=== PATIENT | male | born 1980 | race Caucasian/White ===

== ENCOUNTER 2018-11-12 05:00 | Inpatient (IN) | payer MEDICAID ==
[2018-11-12] VITALS (7 sets, daily range): BP systolic 98–120; BP diastolic 63–82
[~2018-11-12] VITALS: Ht 170.2 cm; Wt 95.0 kg
--- NOTE | 2018-11-12 05:14 | NUR ---
PATIENT AAOX4 PRESENTS TO THE ED WITH C/O CHEST PAIN, N & V THAT STARTED EARLIER THIS AFTERNOON. PT STS "PAIN IN CHEST FEELS LIKE A KNIFE AND I FEEL PRESSURE IN MY STOMACH". BREATHING E/U, SKIN WARM, DRY AND INTACT. ABD SOFT, NON DISTENDED, NON TENDER. BS X 4 QUADS. PT PLACED ON ALL MONITORS FOR FURTHER OBSERVATION. PLACED IN GOWN, GURNEY IN LOW POSITION. SIDE RAILS UP. WILL CONTINUE TO MONITOR.
--- NOTE | 2018-11-12 05:15 | NUR ---
PATIENT ADMITS TO USING METHAPHETAMINE PRIOR TO CHEST PAIN STARTING. PT STS HE HAS HAD CHEST PAIN FOR ABOUT A YEAR, WITH WORSENING PAIN THIS EVENING BEING 9/10. WILL CONTINUE TO MONITOR.
--- NOTE | 2018-11-12 05:30 | NUR ---
EKG IN PROGRESS, MD BEDSIDE.
[2018-11-12 05:47] LABS: BASOPHIL % 0.4 % (0-2); PLATELET COUNT 182 x10^3mcL (130-400)
[2018-11-12 05:48] LABS: RED CELL DISTRIBUTION WIDTH 15.6 % (11.5-14.5)
[2018-11-12 05:50] LABS: CALCIUM 8.6 mg/dL (8.5-10.1); CARBON DIOXIDE 27.4 mmol/L (21-32); CREATININE SERUM 1.8 mg/dL (0.7-1.3); POTASSIUM SERUM 4.2 mmol/L (3.5-5.1)
[2018-11-12 05:55] LABS: ALBUMIN 3.9 g/dL (3.4-5.0); BILIRUBIN TOTAL 0.53 mg/dL (0.20-1.00); TOTAL PROTEIN, SERUM 7.1 g/dL (6.4-8.2)
--- NOTE | 2018-11-12 06:06 | NUR ---
PATIENT PLACED ON 02 VIA NC @ 2 L CONTINUOUS. PT SATS @ LOW 90S PRIOR TO 02 ADMINISTRATION. WILL CONTINUE TO MONITOR.
--- NOTE | 2018-11-12 06:41 | NUR ---
REPORT GIVEN TO THO VIEIRA - RICK FOR CONTINUED CARE OF PATIENT.
--- NOTE | 2018-11-12 07:00 | NUR ---
RECEIVED PT FROM ED. PT AOX4. BREATHING EVEN AND UNLABORED ON NC 2L/MIN. NO SOB NOTED. PT IV LAC PATENT. TELE #22 NSR WITH DEPRESSED T WAVE. PT DENIES CHEST PAIN/PRESSURE AT THIS TIME. VS STABLE. NO SIGNS OF DISTRESS NOTED. WILL ENDORSED TO DAY SHIFT RN.
--- NOTE | 2018-11-12 07:05 | NUR ---
RECEIVED REPORT FROM DARIEL NETTLES. PATIENT RESTING COMFORTABLY IN BED, IS DROWSY BUT AROUSABLE, WITH ALL NEEDS MET. SALINE LOCK TO LAC IS PATENT AND INTACT. NO REDNESS OR PAIN. PT ON O2 2L NC. NO DISTRESS NOTED. TELE # [address] PT DENIES CHEST PAIN. ALL QUESTIONS AND CONCERNS ADDRESSED.
--- NOTE | 2018-11-12 07:36 | NUR ---
PT IN NO SIGNS OF DISTRESS. ENDORSED CARE TO DAY SHIFT RN, ALL QUESTIONS ADDRESSED.
--- NOTE | 2018-11-12 11:28 | NUR ---
IN TO BEGIN FLUIDS. INSTRUCTED PATIENT THAT A URINE SAMPLE IS NEEDED. URINAL PROVIDED. INSTRUCTED TO CALL WHEN URINE IS AVAILABLE. PT VERBALIZED UNDERSTANDING.
--- NOTE | 2018-11-12 13:26 | NUR ---
IN TO SEE PATIENT AND ASSESS NEEDS AFTER LUNCH. PATIENT RESTING COMFORTABLY IN BED WITH FAMILY AT BEDSIDE. ALL NEEDS MET.
--- NOTE | 2018-11-12 14:08 | NUR ---
RECEIVED CALL FROM LAB FOR TROPONIN [phone] DR DIEGO RIVAS.
[2018-11-12 15:24] LABS: AMPHETAMINE QUAL UR POSITIVE (See below)
--- NOTE | 2018-11-12 19:23 | NUR ---
REPORT GIVEN TO FELIX NETTLES. PATIENT SLEEPING COMFORTABLY IN BED. ALL NEEDS MET. TELE MONITOR IN PLACE. PT DENIES CHEST PAIN. PT ON O2 2L NC. NO C/O SOB AND NO DISTRESS NOTED. ALL QUESTIONS AND CONCERNS ADDRESSED.
--- NOTE | 2018-11-12 19:28 | NUR ---
SHIFT REASSESSMENT DONE.PATIENT ALERT AND ORIENTED.NOT IN RESP DISTRESS.O2 AT 2 LITERS.DX OF NON STEMI.HEPLOCK LAC.SITE GOOD AND PATENT.NOW ON LASIX,ELEVATED BNP.WAS ON LOVENOX,NON STEMI.TROP ELEVATED.TELE 22 SR.DEPRESSED T WAVE.SKIN INTACT.VOIDING,UDS + METH.NO PAIN AT THIS TIME.CALL LIGHT IN REACH.
--- NOTE | 2018-11-12 20:44 | NUR ---
VISITOR AT BEDSIDE,SUPPORTIVE OF CARE.NO MED AT THIS TIME.
--- NOTE | 2018-11-12 23:58 | NUR ---
CHECKED AT INTERVALS FOR NEEDS AND SAFETY.CALL LIGHT IN REACH.
[2018-11-13 05:11] VITALS: BP 106/80; BP 139/75
[2018-11-13 06:25] LABS: BASOPHIL % 0.6 % (0-2); PLATELET COUNT 198 x10^3mcL (130-400)
[2018-11-13 06:32] LABS: RED CELL DISTRIBUTION WIDTH 15.3 % (11.5-14.5)
--- NOTE | 2018-11-13 07:00 | NUR ---
RECIEVED PT RESTING IN BED WITH NO C/O PAIN, DISTRESS, OR SOB. TELE #22 CONNECTED TO PT. PT ON 2LPM O2 NC WHEN RECIEVED. IV TO LAC INTACT AND PATENT WITH NO REDNESS OR INFLAMMATION NOTED. SAFETY PRECAUTIONS IN PLACE, CALL LIGHT WITHIN REACH, WILL MONITOR.
[2018-11-13 07:23] LABS: ALKALINE PHOSPHATASE 57 U/L (46-116); ALT/SGPT 49 U/L (16-63); AST/SGOT 22 U/L (15-37); BILIRUBIN TOTAL 0.78 mg/dL (0.20-1.00); CALCIUM 8.5 mg/dL (8.5-10.1); CARBON DIOXIDE 22.2 mmol/L (21-32); CHLORIDE SERUM 106 mmol/L (98-107); CREATININE SERUM 1.2 mg/dL (0.7-1.3); GFR1 > 60 mL/min; GLUCOSE SERUM 93 mg/dL (74-106); POTASSIUM SERUM 4.2 mmol/L (3.5-5.1); SODIUM SERUM 141 mmol/L (136-145); TOTAL PROTEIN, SERUM 6.2 g/dL (6.4-8.2)
[2018-11-13 07:26] LABS: ALBUMIN 3.3 g/dL (3.4-5.0)
[2018-11-13 10:00] VITALS: BP 103/75
--- NOTE | 2018-11-13 10:23 | NUR ---
PT STABLE AT THIS TIME WITH NO C/O PAIN, DISTRESS, OR SOB. SAFETY PRECAUTIONS IN PLACE, CALL LIGHT WITHIN REACH, WILL MONITOR.
[2018-11-13 12:33] VITALS: BP 107/67
--- NOTE | 2018-11-13 14:14 | NUR ---
PT STILL STABLE RESTING IN BED WITH NO C/O PIAN, DISTRESS, OR SOB. DENIES ANY CP OR PRESSURE. SAFETY PRECAUTIONS IN PLACE, CALL LIGHT WITHIN REACH, WILL CONT TO MONITOR.
[2018-11-13] MEDS ORDERED: LISINOPRIL2.5 MG PO (15:27)
[2018-11-13] MEDS ORDERED: CARVEDILOL3.125 M1 PO (15:27)
[2018-11-13] MEDS ORDERED: ASPIR 8181 MG PO (15:28)
[2018-11-13 15:56] VITALS: BP 107/67
--- NOTE | 2018-11-13 16:55 | NUR ---
PT STABLE TO DISCHARGE PER MD ORDER. VS WNL NO DISTRESS OR PAIN NOTED. TOLERATED ALL CARES WELL. ALLL DISCHARGE INSTRUCTIONS, EDUCATION, AND PERSCRIPTIONS GIVEN TO PT AND HE VERBALIZED UNDERSTANDING. IV REMOVED WITH CATHETER INTANT AND NO REDNESS OR INFLAMMATION IS NOTED. ID BAND REMOVED AND PT WAS ESCORTED DOWN TO LOBBY WITH AUDIOVISUAL TECHNICIAN AND FAMILY AT SIDE.
== END 2018-11-13 16:49 | disposition home or self-care (01) | DRG 190 ==
LOC: ED 05:00 → DU 06:23
PROVIDERS: Emergency Medicine; ADMIT General Practice
DX: I21.4 Non-ST elevation (NSTEMI) myocardial infarction (principal); E87.0 Hyperosmolality and hypernatremia; N17.9 Acute kidney failure, unspecified; I27.29 Other secondary pulmonary hypertension; F15.10 Other stimulant abuse, uncomplicated; I42.9 Cardiomyopathy, unspecified; I36.1 Nonrheumatic tricuspid (valve) insufficiency; F17.210 Nicotine dependence, cigarettes, uncomplicated
CPT/HCPCS: 83880; G0378; J1650; J1940; J2060; J7030; Q0092